=== PATIENT | female | born 1980 | race Caucasian/White ===

== ENCOUNTER 2016-08-09 14:22 | Emergency (ER) | payer SELFPAY ==
[~2016-08-09] VITALS: Ht 162.6 cm; Wt 115.0 kg
[~2016-08-09 14:22] MED LIST: HYDROCHLOROT12.5 M1 PO; METO25TAB PO; ULTRAM50 MG PO; XANAX0.25 MG PO
[2016-08-09] MEDS ORDERED: ULTRAM50 M1 PO (16:05)
[2016-08-09 16:10] VITALS: BP 129/74
== END 2016-08-09 16:10 | disposition home or self-care (01) | DRG 563 ==
LOC: ED 14:22
DX: S43.402A Unspecified sprain of left shoulder joint, initial encounter (principal); W01.0XXA Fall on same level from slipping, tripping and stumbling without subsequent striking against object, initial encounter; Y93.9 Activity, unspecified; Y92.009 Unspecified place in unspecified non-institutional (private) residence as the place of occurrence of the external cause

== ENCOUNTER 2021-11-02 19:37 | Emergency (ER) | payer SELFPAY ==
[~2021-11-02] VITALS: Ht 162.6 cm; Wt 119.0 kg
[~2021-11-02 19:37] MED LIST changes: +ULTRAM50 M1 PO
[2021-11-02 20:40] VITALS: BP 131/88
[2021-11-02 20:45] VITALS: BP 114/75
[2021-11-02] MEDS ORDERED: LEVOTHYROXIN75 MCG PO (20:47)
[2021-11-02] MEDS ORDERED: XANAX1 MG PO (20:48)
[2021-11-02] MEDS ORDERED: METOPROL TAR25 MG PO (20:48)
[2021-11-02 21:00] VITALS: BP 124/76
[2021-11-02] MEDS ORDERED: NAPROXEN500 MG PO (21:14)
[2021-11-02 21:15] VITALS: BP 113/76
[2021-11-02 21:25] VITALS: BP 113/76
== END 2021-11-02 21:30 | disposition home or self-care (01) | DRG 605 ==
LOC: ED 19:37
DX: S90.31XA Contusion of right foot, initial encounter (principal); I10 Essential (primary) hypertension; F41.9 Anxiety disorder, unspecified; E03.9 Hypothyroidism, unspecified; F17.210 Nicotine dependence, cigarettes, uncomplicated; W20.8XXA Other cause of strike by thrown, projected or falling object, initial encounter

== ENCOUNTER 2022-10-31 17:52 | Emergency (ER) | payer MEDICAID ==
[~2022-10-31] VITALS: Ht 162.6 cm; Wt 127.0 kg
[~2022-10-31 17:52] MED LIST changes: +LEVOTHYROXIN75 MCG PO; +METOPROL TAR25 MG PO; +NAPROXEN500 MG PO; +XANAX1 MG PO
[2022-10-31 19:30] VITALS: BP 133/79
[2022-10-31] MEDS ORDERED: METHOCARBAMOL500 MG PO (19:43)
[2022-10-31] MEDS ORDERED: NAPROXEN500 MG PO (19:43)
[2022-10-31 19:45] VITALS: BP 159/96
[2022-10-31 19:57] VITALS: BP 158/80
== END 2022-10-31 20:05 | disposition home or self-care (01) ==
LOC: ED 17:52
DX: S43.402A Unspecified sprain of left shoulder joint, initial encounter (principal); I10 Essential (primary) hypertension; F41.9 Anxiety disorder, unspecified; E03.9 Hypothyroidism, unspecified; F17.200 Nicotine dependence, unspecified, uncomplicated; Y04.0XXA Assault by unarmed brawl or fight, initial encounter